=== PATIENT | female | born 1970 | race Caucasian/White ===

== ENCOUNTER 2024-08-15 10:34 | Outpatient (AMB) | payer BC, SELFPAY ==
--- NOTE | 2024-08-15 10:53 | A.OFFPC_ITS ---
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 Anxiety/depression: On lexapro. Hypothyroid: Stable on levothyroxine 100mcg daily [facility]-Dr Ricardo BECKFORD CONSTITUTIONAL: Denies weight loss, fever and chills. HEENT: Denies changes in vision and hearing. RESPIRATORY: Denies SOB and cough. CV: Denies palpitations and CP GI: Denies abdominal pain, nausea, vomiting and diarrhea. : Denies dysuria and urinary frequency. MSK: Denies new myalgia and joint pain. SKIN: Denies rash and pruritus. NEUROLOGICAL: Denies headache PSYCHIATRIC: Denies recent changes in mood. PHYSICAL EXAM: GENERAL: Alert and oriented x 3. NAD EYES: EOMI. Anicteric. HENT: Moist mucous membranes. No scleral icterus. No cervical lymphadenopathy. LUNGS: Clear to auscultation bilaterally. CARDIOVASCULAR: Regular rate and rhythm. No murmur. No JVD. ABDOMEN: Soft, non-tender +bs EXTREMITIES: No edema. Non-tender. SKIN: No rashes or lesions. Warm. NEUROLOGIC: No focal neurological deficits. CN II-XII grossly intact PSYCHIATRIC: Cooperative. Appropriate mood and affect [facility] Social History Housing: Condominium Patient Tobacco Use Status: Former Tobacco user Years Smoked: colleges years e-Cigarette/Vaping Use: Never Used Second Hand Smoke Exposure: No service: No Current occupational status: employed Current occupation: Teacher Current occupational exposures/hazards: No Cognitive needs: No Hearing needs: No Vision needs: No Questionnaire PHQ-9 Over the last 2 weeks, how often have you been bothered by any of the following problems? 1. Little interest or pleasure in doing things: several days 2. Feeling down, depressed, or hopeless: not at all 3. Trouble falling or staying asleep, or sleeping too much: not at all 4. Feeling tired or having little energy: several days 5. Poor appetite or overeating: not at all 6. Feeling bad about yourself - or that you are a failure or have let yourself or your family down: not at all 7. Trouble concentrating on things, such as reading the newspaper or watching television: not at all 8. Moving or speaking so slowly that other people could have noticed. Or the opposite - being so fidgety or restless that you have been moving around a lot more than usual: not at all 9. Thoughts that you would be better off or of hurting yourself in some way: not at all Total score: 2 Depression Screening Interpretation: Negative Depression Screening Done: Yes 90027 - PHQ-9 Billing: Yes Source: Developed by Drs. Joce Michelle, Mally Mckeon, Rustam Caballero and colleagues, with an educational nayeli from [employer]. Thrive Questionnaire Date Thrive assessed: 08/08/24 I am a: Patient What is your living situation today?: I have a steady place to live Within the past 12 months, did the food you bought not last and you didn't have the money to get more?: Never true Within the past 12 months, did you worry whether your food would run out before you got money to buy more?: Never true Do you have trouble paying for medicines?: No Do you have trouble getting transportation to medical appointments?: No Do you have trouble paying your heating and electricity bill?: No Do you have trouble taking care of your child, family member or friend?: No Do you have trouble with day-to-day activities such as bathing, preparing meals, shopping, managing finances, etc.?: No Are you currently unemployed and looking for a job?: No Are you interested in more education?: No Please select the resources that you would like help with: None Currently or been in a relationship where the following occur: No concerns reported THRIVE Score: 0 AUDIT C Alcohol Use Questionnaire (AUDIT-C) 1. How often do you have a drink containing alcohol?: 2-3 times a week 2. How many drinks containing alcohol do you have on a typical day when you are drinking?: 3 or 4 3. How often do you have six or more drinks on one occasion?: Never Total Score: 4 ADONAY-7 AMB Questionnaire ADONAY-7 Feeling nervous, anxious, or on edge: 1 = Several days Not being able to stop or control worryin = Not at all Worrying too much about different things: 1 = Several days Trouble relaxin = Not at all Being so restless that it is hard to sit still: 0 = Not at all Becoming easily annoyed or irritable: 0 = Not at all Feeling afraid as if something awful might happen: 1 = Several days Total ADONAY-7 score (0-4 normal; 5-9 mild; 10-14 moderate; 15-21 severe): 3 Source: Developed by Drs. Joce Michelle, Mally Mckeon, Rustam Caballero and colleagues, with an educational nayeli from [employer]. Physical exam (Primary Care) Vital Signs: Last Vital Signs Pulse 78 08/15/24 10:55 Resp 14 08/15/24 10:55 BP 128/88 08/15/24 10:55 Pulse Ox 97 08/15/24 10:55 Oxygen Delivery Method Room Air 08/15/24 10:55 BMI result Body Mass Index 28.5 Tobacco/Smoking Status: Tobacco use Status Tobacco use date assessed 08/15/24 08/15/24 10:57 Patient Tobacco Use Status Former Tobacco user 08/15/24 10:57 e-Cigarette/Vaping Use Never Used 08/15/24 10:57 PHQ-9: PHQ-9 Score PHQ-9: Total score 2 08/29/24 01:19 Depression Screening Interpretation: Negative Thrive Assessment: Date of Thrive Assessment Date Thrive assessed 08/08/24 08/15/24 10:57 Currently or been in a relationship where the following occur: No concerns reported Coding Level of Care Code Est Pt Level 4 (63510) Diagnoses Encounter to establish care Z76.89 Hypothyroid E03.9 Additional Codes PHQ-9 - 86251 - PHQ-9 Billing: Yes ([id number]) Assessment & Plan Assessment & Plan (1) Encounter to establish care: Code(s): Z76.89 - Persons encountering health services in other specified circumstances Category: Medical Plan: 54 year old female presenting to establish care. Past medical, surgical, social history reviewed (2) Hypothyroid: Code(s): E03.9 - Hypothyroidism, unspecified Category: Medical Plan: Clinically and biochemically euthyroid Orders: Orders Complete Blood Count Auto Diff 08/15/24 Z13.0 - Encounter for screening for diseases of the blood and blood-forming organs and certain disorders involving the immune mechanism, Z13.228 - Encounter for screening for other metabolic disorders, E03.9 - Hypothyroidism, unspecified Comprehensive Met. Panel 08/15/24 Z13.0 - Encounter for screening for diseases of the blood and blood-forming organs and certain disorders involving the immune mechanism, Z13.228 - Encounter for screening for other metabolic disorders, E03.9 - Hypothyroidism, unspecified MM screening mammo BI 08/15/24 Z12.31 - Encounter for screening mammogram for malignant neoplasm of breast Lipid Panel 08/15/24 Z13.0 - Encounter for screening for diseases of the blood and blood-forming organs and certain disorders involving the immune mechanism, Z13.228 - Encounter for screening for other metabolic disorders, E03.9 - Hypothyroidism, unspecified TSH reflex Free T4 08/15/24 Z13.0 - Encounter for screening for diseases of the blood and blood-forming organs and certain disorders involving the immune mechanism, Z13.228 - Encounter for screening for other metabolic disorders, E03.9 - Hypothyroidism, unspecified Referrals Endocrinology Referral E04.1 - Nontoxic single thyroid nodule, E03.9 - Hypothyroidism, unspecified Open Access Screening Colonoscopy Referral Z12.11 - Encounter for screening for malignant neoplasm of colon, Z12.12 - Encounter for screening for malignant neoplasm of rectum [employer] Referral Z12.4 - Encounter for screening for malignant neoplasm of cervix
[2024-08-15 10:55] VITALS: BP 128/88; PULSE 78; RESP 14; O2SAT 97; BMI 28.5
== END 2024-08-15 11:24 | disposition home or self-care (01) ==
PROVIDERS: PCP Internal Medicine; Visit Provider Internal Medicine
DX: Z76.89 Persons encountering health services in other specified circumstances (principal); E03.9 Hypothyroidism, unspecified

== ENCOUNTER → 2024-08-15 10:34 | Outpatient (BNVA) | payer BC, SELFPAY | PROVIDERS: PCP Internal Medicine; Visit Provider Internal Medicine | DX: Z76.89 Persons encountering health services in other specified circumstances (principal); E03.9 Hypothyroidism, unspecified; F41.9 Anxiety disorder, unspecified; F32.A Depression, unspecified; Z79.899 Other long term (current) drug therapy | CPT/HCPCS: 96127 ==

== ENCOUNTER 2024-08-15 11:32 | Outpatient (REF) | payer BC, SELFPAY ==
[2024-08-15 14:23] LABS: MANUAL DIFF FLAG NO
[2024-08-15 14:28] LABS: Basophils Absolute Auto 0.1 X10*3/uL (0.0-0.2); Basophils Percent Auto 1.6 % (0-2); Hematocrit 39.6 % (37.0-47.0); Hemoglobin 14.3 g/dl (12.0-16.0); Lymphocytes Absolute Auto 0.8 X10*3/uL (1.2-4.9); Lymphocytes Percent Auto 25.4 % (20-40); Mean Corpuscular HGB Conc 36.1 g/dl (31.0-35.0); Mean Corpuscular Hemoglobin 36.2 pg (27.0-33.0); Mean Corpuscular Volume 100.3 fL (80.0-98.0); Mean Platelet Volume 9.6 fL (9.4-12.3); Monocytes Absolute Auto 0.4 X10*3/uL (0.1-1.2); Monocytes Percent Auto 11.1 % (2-11); Neutrophils Absolute Auto 1.9 x10*3/uL (2.0-8.3); Neutrophils Percent Auto 60.9 % (45-73); Platelet Count 304 X10*3/uL (160-400); Red Blood Count 3.95 X10*6/uL (4.20-5.50); Red Cell Distribution Width 12.7 % (11.0-16.0); White Blood Count 3.2 X10*3/uL (4.8-10.8)
[2024-08-15 14:47] LABS: Alanine Aminotransferase 62 U/L (0-31); Albumin Level 4.3 g/dL (3.5-5.0); Alkaline Phosphatase 80 U/L (39-117); Anion Gap 15 (12-20); Aspartate Amino Transferase 45 U/L (5-31); Bilirubin Total 0.6 mg/dL (0.0-1.0); Blood Urea Nitrogen 13 mg/dL (9-16); Calcium 9.7 mg/dL (8.4-10.2); Carbon Dioxide 24 mmol/L (22-29); Chloride 102 mmol/L (96-108); Cholesterol 239 mg/dL (<200); Estimated Glomerular Filt Rate > 60; Glucose Random 103 mg/dL (60-115); HDL Cholesterol 111 mg/dL (>40); LDL Cholesterol Calculated 111 mg/dL (<100); Potassium 4.1 mmol/L (3.3-5.1); Sodium 137 mmol/L (135-145); Total Protein 7.3 g/dL (6.5-8.0); Triglycerides 85 mg/dL (<150)
[2024-08-15 15:10] LABS: TSH reflex Free T4 7.79 uIU/mL (0.32-4.0)
[2024-08-15 16:20] LABS: Free T4 (Free Thyroxine) 1.11 ng/dL (0.71-1.85)
== END 2024-08-15 11:33 | disposition home or self-care (01) ==
LOC: HO.WFDLDS 11:32
PROVIDERS: Visit Provider Internal Medicine
DX: Z13.0 Encounter for screening for diseases of the blood and blood-forming organs and certain disorders involving the immune mechanism (principal); Z13.228 Encounter for screening for other metabolic disorders; E03.9 Hypothyroidism, unspecified
CPT/HCPCS: 36415; 80053; 80061; 84439; 84443; 85025

== ENCOUNTER 2024-08-29 08:21 | Outpatient (AMB) | payer BC, SELFPAY ==
[2024-08-29 08:34] VITALS: BP 136/88; PULSE 98; O2SAT 99; BMI 28.4
--- NOTE | 2024-08-29 08:34 | A.OFFPC_ITS ---
Vital Signs 08/29/24 08:34 Height 5 ft 3 in Weight 160 lb 6 oz BMI 28.4 BP 136/88 Blood Pressure Location Rt brachial Position Sitting Pulse 98 Pulse Source Pulse Oximeter Pulse Oximetry (%) 99 Oxygen Delivery Method Room Air Intake Visit Reasons: cpe Allergies No Known Allergies Allergy (Verified 08/29/24 08:38) Tobacco use date assessed: 08/29/24 Dental Screening Dental Screen Date: 08/29/24 Did you have a dental visit in the last 12 months?: Yes Did you have a dental problem in the last 6 months where you did not have access to dental care?: No Was dental information given to patient?: Patient has dentist HPI HPI Comments History of Present Illness Details 54 year old female with a past medical h istory of hypothyroid, anxiety, depression presenting for annual exam Anxiety/depression: On lexapro. Hypothyroid: On levothyroxine 100mcg daily. Compliant. TSH elevated-increased levothyroxine from 100 to 100mcg today. Referral to endocrine pending Recently moved to the area-was following at [facility] ctr-Dr Ricardo Bennett [facility] CONSTITUTIONAL: Denies weight loss, fever and chills. HEENT: Denies changes in vision and hearing. RESPIRATORY: Denies SOB and cough. CV: Denies palpitations and CP GI: Denies abdominal pain, nausea, vomiting and diarrhea. : Denies dysuria and urinary frequency. MSK: Denies new myalgia and joint pain. SKIN: Denies rash and pruritus. NEUROLOGICAL: Denies headache PSYCHIATRIC: Denies recent changes in mood. PHYSICAL EXAM: GENERAL: Alert and oriented x 3. NAD EYES: EOMI. Anicteric. HENT: Moist mucous membranes. No scleral icterus. No cervical lymphadenopathy. LUNGS: Clear to auscultation bilaterally. CARDIOVASCULAR: Regular rate and rhythm. No murmur. No JVD. ABDOMEN: Soft, non-tender +bs EXTREMITIES: No edema. Non-tender. SKIN: No rashes or lesions. Warm. NEUROLOGIC: No focal neurological deficits. CN II-XII grossly intact PSYCHIATRIC: Cooperative. Appropriate mood and affect [facility] Patient Tobacco Use Status: Former Tobacco user Years Smoked: colleges years e-Cigarette/Vaping Use: Never Used Second Hand Smoke Exposure: No service: No Current occupational status: employed Current occupation: Teacher Current occupational exposures/hazards: No Cognitive needs: No Hearing needs: No Vision needs: No Questionnaire PHQ-9 Over the last 2 weeks, how often have you been bothered by any of the following problems? 1. Little interest or pleasure in doing things: several days 2. Feeling down, depressed, or hopeless: not at all 3. Trouble falling or staying asleep, or sleeping too much: not at all 4. Feeling tired or having little energy: several days 5. Poor appetite or overeating: not at all 6. Feeling bad about yourself - or that you are a failure or have let yourself or your family down: not at all 7. Trouble concentrating on things, such as reading the newspaper or watching television: not at all 8. Moving or speaking so slowly that other people could have noticed. Or the opposite - being so fidgety or restless that you have been moving around a lot more than usual: not at all 9. Thoughts that you would be better off or of hurting yourself in some way: not at all Total score: 2 Depression Screening Interpretation: Negative Depression Screening Done: Yes 05373 - PHQ-9 Billing: Yes Source: Developed by Drs. Joce Michelle, Mally Mckeon, Rustam Caballero and colleagues, with an educational nayeli from [employer]. Thrive Questionnaire Date Thrive assessed: 08/08/24 I am a: Patient What is your living situation today?: I have a steady place to live Within the past 12 months, did the food you bought not last and you didn't have the money to get more?: Never true Within the past 12 months, did you worry whether your food would run out before you got money to buy more?: Never true Do you have trouble paying for medicines?: No Do you have trouble getting transportation to medical appointments?: No Do you have trouble paying your heating and electricity bill?: No Do you have trouble taking care of your child, family member or friend?: No Do you have trouble with day-to-day activities such as bathing, preparing meals, shopping, managing finances, etc.?: No Are you currently unemployed and looking for a job?: No Are you interested in more education?: No Please select the resources that you would like help with: None Currently or been in a relationship where the following occur: No concerns reported THRIVE Score: 0 AUDIT C Alcohol Use Questionnaire (AUDIT-C) 1. How often do you have a drink containing alcohol?: 2-3 times a week 2. How many drinks containing alcohol do you have on a typical day when you are drinking?: 3 or 4 3. How often do you have six or more drinks on one occasion?: Never Total Score: 4 ADONAY-7 AMB Questionnaire ADONAY-7 Date ADONAY - 7 assessed: 08/29/24 Feeling nervous, anxious, or on edge: 1 = Several days Not being able to stop or control worryin = Not at all Worrying too much about different things: 1 = Several days Trouble relaxin = Not at all Being so restless that it is hard to sit still: 0 = Not at all Becoming easily annoyed or irritable: 0 = Not at all Feeling afraid as if something awful might happen: 1 = Several days Total ADONAY-7 score (0-4 normal; 5-9 mild; 10-14 moderate; 15-21 severe): 3 Source: Developed by Drs. Joce Michelle, Mally Mckeon, Rustam Caballero and colleagues, with an educational nayeli from [employer]. ADONAY-7 Assessment Billing ADONAY-7 Assessment Tool: ADONAY-7 Assessment 59982 Physical exam (Primary Care) Vital Signs: Last Vital Signs Pulse 98 08/29/24 08:34 BP 136/88 08/29/24 08:34 Pulse Ox 99 08/29/24 08:34 Oxygen Delivery Method Room Air 08/29/24 08:34 BMI result Body Mass Index 28.4 Tobacco/Smoking Status: Tobacco use Status Tobacco use date assessed 08/29/24 08/29/24 08:39 Patient Tobacco Use Status Former Tobacco user 08/29/24 08:39 e-Cigarette/Vaping Use Never Used 08/29/24 08:39 PHQ-9: PHQ-9 Score PHQ-9: Total score 2 08/29/24 08:39 Depression Screening Interpretation: Negative Thrive Assessment: Date of Thrive Assessment Date Thrive assessed 08/08/24 08/29/24 08:39 Currently or been in a relationship where the following occur: No concerns reported Coding Level of Care Code Est Pt Prev Care 40-64y(33369) Diagnoses Physical exam Z00.00 Additional Codes ADONAY-7 Assessment Billing - ADONAY-7 Assessment Tool: ADONAY-7 Assessment 48261 ([id number]) PHQ-9 - 29371 - PHQ-9 Billing: Yes ([id number]) Assessment & Plan Assessment & Plan (1) Physical exam: Code(s): Z00.00 - Encounter for general adult medical examination without abnormal findings Category: Medical Plan: Preventive measures for age discussed Mammo scheduled Awaiting colonoscopy date Labs UTD TSH elevated. Levothyroxine increased to 112mcg Orders: Orders TSH reflex Free T4 2 Months E03.9 - Hypothyroidism, unspecified Medications: New levothyroxine 112 mcg PO DAILY 90 tabs 3RF
== END 2024-08-29 09:05 | disposition home or self-care (01) ==
PROVIDERS: PCP Internal Medicine; Visit Provider Internal Medicine
DX: Z00.00 Encounter for general adult medical examination without abnormal findings (principal)

== ENCOUNTER → 2024-08-29 08:21 | Outpatient (BNVA) | payer BC, SELFPAY | PROVIDERS: PCP Internal Medicine; Visit Provider Internal Medicine | DX: Z00.00 Encounter for general adult medical examination without abnormal findings (principal); E03.9 Hypothyroidism, unspecified; F41.9 Anxiety disorder, unspecified; F32.A Depression, unspecified; Z79.899 Other long term (current) drug therapy | CPT/HCPCS: 96127 ==

== ENCOUNTER 2024-09-12 10:46 | Outpatient (AMB) | payer BC, SELFPAY ==
[2024-09-12 10:48] VITALS: BP 150/100; PULSE 81; BMI 29.1
--- NOTE | 2024-09-12 10:48 | A.OFFVIS_ITS ---
Vital Signs 09/12/24 10:48 09/12/24 11:13 Height 5 ft 3 in Weight 164 lb 3.91 oz BMI 29.1 BP 150/100 H 142/85 H Blood Pressure Location Lt brachial Lt brachial Position Sitting Pulse 81 Pulse Source Pulse Oximeter Intake Visit Reasons: Hypothyroidism Intake Note: New patient present today for Hypothyroidism. Nub Card Tender Required: No Accompanied by: Self / Same As Patient Allergies No Known Allergies Allergy (Verified 09/12/24 10:51) Medication List - Last Reconciled 09/12/24 by Amina Choi MD escitalopram oxalate 20 mg PO DAILY levothyroxine 112 mcg PO DAILY semaglutide 0.25 mg subcut QWEEK HPI Comments Details: 54-year-old female here today for initial evaluation of hypothyroidism. Also reports history of left sided thyroid nodule. Diagnosed with hypothyroidism, diagnosed in her 40s. Labs from 08/15/2024: Showed elevated TSH of 7.79, free T4 of 1.11. 08/29/2024: PCP increased levothyroxine from 100 mcg daily to 112 mcg daily Takes levothyroxine 112 mcg daily at 7 30 AM, fasts till midday. Good adherence. Used to see Dr. Ricardo Bennett in [place] for thyroid nodule ( [facility]) , moved to [place] 6 months ago For left thyroid nodule< thinks diagnosed also in her 40s, had FNA biopsy 12 years back [facility] was benign, has been followed with repeat US , most recently 2- 3 years ago, no recent thyroid Us done. Patient currently denies heat or cold intolerance, diarrhea or constipation, hair loss, palpitation, anxiety, weight changes, mood changes, low energy, changes in appearance of eyes or vision changes, tremors, increased diaphoresis or dry skin. ? Patient denies any difficulty swallowing, pain on swallowing or voice changes or difficulty breathing. Patient denies any history of childhood neck radiation. Denies having ever used lithium, amiodarone or biotin supplements. Patient denies any family history of thyroid cancer or thyroid disease. Review of systems Constitutional: no fevers, chills or weight loss HEENT: no changes in vision Cardiac: No chest pain, discomfort or palpitations. Pulmonary: No SOB GI:No abdominal pain, no nausea or vomiting, no anorexia, no blood in stool : no burning micturition, dysuria or increase in urinary frequency Neurologic: No dizziness, no weakness in extremities Physical exam General: sitting comfortably in no acute distress HEENT: normocephalic/atraumatic, EOM intact, moist oral mucosa Neck: supple, symmetrical, no thyromegaly , no dorsocervical or supraclavicular fat pads Cardiac: normal heart sounds Pulm: normal breath sounds B/L, no added breath sounds Abd: not distended, no tenderness Extremities: no edema, no signs of myxedema Neuro: AAO x3, Speech: normal, no facial droop, moving all 4 extremities Laboratory Tests 08/15/24 11:34 TSH 7.79 H Free T4 1.11 PFSH [facility] Patient Tobacco Use Status: Former Tobacco user Years Smoked: colleges years e-Cigarette/Vaping Use: Never Used Second Hand Smoke Exposure: No service: No Current occupational status: employed Current occupation: Teacher Current occupational exposures/hazards: No Cognitive needs: No Hearing needs: No Vision needs: No Physical Exam Vital Signs: Last Vital Signs Pulse 81 09/12/24 10:48 BP 150/100 H 09/12/24 10:48 BMI result Body Mass Index 29.1 Assessment & Plan Assessment & Plan (1) Hypothyroid: Code(s): E03.9 - Hypothyroidism, unspecified Category: Medical Qualifiers: 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 Plan: -continue levothyroxine 112 mcg daily -do blood work in 4 weeks which would be around 2 weeks from dose change (2) Thyroid nodule: Code(s): E04.1 - Nontoxic single thyroid nodule Category: Medical Plan: 54-year-old female with no family history of thyroid cancer, with no personal history of head or neck radiation, who has a history of left-sided thyroid nodule per patient diagnosed in her 40s. She has had a biopsy of the nodule about 12 years ago, which was benign per patient. I do not have these records. She has not had any recent thyroid ultrasound for the past 2-3 years. No compressive symptoms. We will try to obtain her records from [place]. Regardless we will also obtain a thyroid ultrasound. On my exam today I could not palpate any thyroid nodules. Plan: -ordered thyroid ultrasound -obtain records from prior [facility] clinical programmer in [place] -follow up in 8 weeks to discuss ultrasound results Plan See above Orders: Orders Free T4 (Free Thyroxine) 4 Weeks E03.9 - Hypothyroidism, unspecified US thyroid Today E04.1 - Nontoxic single thyroid nodule Thyroid Stimulating Hormone 4 Weeks E03.9 - Hypothyroidism, unspecified Patient Instructions: Continue levothyroxine 112 mcg daily Do blood work in 4 weeks , we will reach out with results Do thyroid ultrasound, someone will call you to schedule this Follow up in 8 weeks Coding Level of Care Code New Pt Level 4 (17177) Diagnoses 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
[2024-09-12 11:13] VITALS: BP 142/85
== END 2024-09-12 11:12 | disposition home or self-care (01) ==
PROVIDERS: PCP Internal Medicine; Visit Provider Student in an Organized Health Care Education/Training Program
DX: E06.3 Autoimmune thyroiditis (principal); E04.1 Nontoxic single thyroid nodule
CPT/HCPCS: 99204

== ENCOUNTER 2024-09-26 15:27 | Outpatient (REF) | payer BC, SELFPAY ==
--- NOTE | ~2024-09-26 | US_ITS ---
EXAMINATION: US THYROID HISTORY: E04.1 - Nontoxic single thyroid nodule TECHNIQUE: Real-time grayscale ultrasound imaging was performed and images were reviewed. COMPARISON: There are no prior studies for comparison. FINDINGS: SIZE: The right thyroid lobe measures 3.2 x 0.8 x 1.0 cm. The left thyroid lobe measures 3.4 x 0.9 x 1.4 cm. The isthmus measures 1 mm. FLOW: Flow to the gland is normal. ECHOGENICITY: The echotexture of the gland is heterogeneous. NODULES: Multiple nodules are noted as described below: Nodule #: 1 Location: Mid to lower pole right thyroid lobe measuring 1.1 x 0.7 x 0.7 cm Shape: Ovoid, wider than tall Margins: Well-circumscribed Echotexture: Isoechoic Morphology: Predominantly solid Calcifications: None TIRADS: TR3: Mildly suspicious. Nodule #: 2 Location: Left interpolar region measuring 9 x 9 x 8 mm Shape: Round Margins: Well-circumscribed Echotexture: Undetermined Morphology: Cystic and solid Calcifications: None TIRADS: TR2: Not suspicious Nodule #: 3 Location: Left lower pole measuring 1.1 x 1.2 x 0.8 cm Shape: Ovoid, wider than tall Margins: Well-circumscribed Echotexture: Undetermined Morphology: Cystic and solid Calcifications: Macrocalcifications present TIRADS: TR3: Mildly suspicious. US/US thyroid IMPRESSION: Nodules are seen in both thyroid lobes as described, which are mildly suspicious. According to ACR TI-RADS, follow-up is recommended. Electronically signed by: Joce Marshall MD 10/03/2024 12:36 PM [facility] [place]
--- OUTSIDE RECORDS SUMMARY | 2024-09-26 17:18 | XMS_ITS ---
Author Organization Unknown Patient Care team information Name Category Status Period Participants - - Proposed period not known - - - Proposed period not known - - - Proposed period not known - - - Proposed period not known - - - Proposed period not known -
== END 2024-09-26 15:28 | disposition home or self-care (01) ==
LOC: HO.US 15:27
PROVIDERS: PCP Internal Medicine; Visit Provider Student in an Organized Health Care Education/Training Program
DX: E04.1 Nontoxic single thyroid nodule (principal)
CPT/HCPCS: 76536

== ENCOUNTER → 2024-09-26 15:29 | Outpatient (BNV) | payer BC, SELFPAY | PROVIDERS: PCP Internal Medicine; Visit Provider Radiology Diagnostic Radiology | DX: E04.1 Nontoxic single thyroid nodule (principal) | CPT/HCPCS: 76536 ==

== ENCOUNTER 2024-09-30 16:15 | Outpatient (REF) | payer BC, SELFPAY | END 2024-09-30 16:16 | disposition home or self-care (01) | LOC: HO.MAMMO 16:15 | PROVIDERS: PCP Internal Medicine; Visit Provider Internal Medicine | DX: Z12.31 Encounter for screening mammogram for malignant neoplasm of breast (principal) | CPT/HCPCS: 77063; 77067 ==

== ENCOUNTER → 2024-09-30 16:30 | Outpatient (BNV) | payer BC, SELFPAY | PROVIDERS: PCP Internal Medicine; Visit Provider Internal Medicine | DX: Z12.31 Encounter for screening mammogram for malignant neoplasm of breast (principal) | CPT/HCPCS: 77063; 77067 ==

== ENCOUNTER 2024-11-14 08:11 | Outpatient (REF) | payer BC, SELFPAY ==
[2024-11-14 12:12] LABS: Free T4 (Free Thyroxine) 1.52 ng/dL (0.71-1.85); Thyroid Stimulating Hormone 0.09 uIU/mL (0.32-4.0)
== END 2024-11-14 08:12 | disposition home or self-care (01) ==
LOC: HO.WFDLDS 08:11
PROVIDERS: Visit Provider Student in an Organized Health Care Education/Training Program
DX: E03.9 Hypothyroidism, unspecified (principal)
CPT/HCPCS: 36415; 84439; 84443

== ENCOUNTER 2024-11-17 13:52 | Outpatient (AMB) | payer BC, SELFPAY ==
[2024-11-17 13:56] VITALS: BP 132/78; PULSE 72; O2SAT 96; BMI 27.3
--- NOTE | 2024-11-17 13:56 | A.OFFVIS_ITS ---
Vital Signs 11/17/24 13:56 Height 5 ft 3 in Weight 154 lb 1.65 oz BMI 27.3 BP 132/78 Blood Pressure Location Lt brachial Position Sitting Pulse 72 Pulse Source Pulse Oximeter Pulse Oximetry (%) 96 Oxygen Delivery Method Room Air Intake Visit Reasons: Hypothyroidism Intake Note: Patient present today for Hypothyroidism office visit. Nurse Transitional Required: No Accompanied by: Self / Same As Patient Allergies No Known Allergies Allergy (Verified 11/17/24 14:01) Medication List - Last Reconciled 11/17/24 by Amina Choi MD escitalopram oxalate 20 mg PO DAILY levothyroxine 112 mcg orally; 1 tablet Thursday to Thursday and half a tablet on Sundays semaglutide 0.25 mg subcut QWEEK HPI Comments Details: 54-year-old female here today for follow up of hypothyroidism. and left sided thyroid nodules. Diagnosed with hypothyroidism, diagnosed in her 40s. Labs from 08/15/2024: Showed elevated TSH of 7.79, free T4 of 1.11. 08/29/2024: PCP increased levothyroxine from 100 mcg daily to 112 mcg daily Takes levothyroxine 112 mcg daily at 7 30 AM, fasts till midday. Good adherence. Used to see Dr. Ricardo Bennett in [place] for thyroid nodule ( [facility]) , moved to [place] 6 months ago For left thyroid nodule< thinks diagnosed also in her 40s, had FNA biopsy 12 years back [facility] was benign, has been followed with repeat US , most recently 2- 3 years ago, no recent thyroid Us done. Patient currently denies heat or cold intolerance, diarrhea or constipation, hair loss, palpitation, anxiety, weight changes, mood changes, low energy, changes in appearance of eyes or vision changes, tremors, increased diaphoresis or dry skin. ? Patient denies any difficulty swallowing, pain on swallowing or voice changes or difficulty breathing. Patient denies any history of childhood neck radiation. Denies having ever used lithium, amiodarone or biotin supplements. Patient denies any family history of thyroid cancer or thyroid disease. Interval history 09/26/2024: Ultrasound of the thyroid showed a mid to lower right pole nodule 1.1 cm, TR 3 category, a left subcentimeter interpolar nodule which is cystic, and a left lower pole 1.2 cm nodule which is TR 3 category. 11/14/2024: TSH 0.09 , free T4 1.5 No symptoms of hypo or hyperthyroidism. Physical exam General: sitting comfortably in no acute distress HEENT: normocephalic/atraumatic Neck: supple, symmetrical, no thyromegaly Cardiac: normal heart sounds Pulm: normal breath sounds B/L, no added breath sounds Abd: not distended, no tenderness Laboratory Tests 08/15/24 11:34 TSH 7.79 H Free T4 1.11 Laboratory Tests 08/15/24 11/14/24 11:34 08:12 TSH 7.79 H 0.09 L Free T4 1.11 1.52 EXAMINATION: US THYROID 09/26/24 HISTORY: E04.1 - Nontoxic single thyroid nodule TECHNIQUE: Real-time grayscale ultrasound imaging was performed and images were reviewed. COMPARISON: There are no prior studies for comparison. FINDINGS: SIZE: The right thyroid lobe measures 3.2 x 0.8 x 1.0 cm. The left thyroid lobe measures 3.4 x 0.9 x 1.4 cm. The isthmus measures 1 mm. FLOW: Flow to the gland is normal. ECHOGENICITY: The echotexture of the gland is heterogeneous. NODULES: Multiple nodules are noted as described below: Nodule #: 1 Location: Mid to lower pole right thyroid lobe measuring 1.1 x 0.7 x 0.7 cm Shape: Ovoid, wider than tall Margins: Well-circumscribed Echotexture: Isoechoic Morphology: Predominantly solid Calcifications: None TIRADS: TR3: Mildly suspicious. Nodule #: 2 Location: Left interpolar region measuring 9 x 9 x 8 mm Shape: Round Margins: Well-circumscribed Echotexture: Undetermined Morphology: Cystic and solid Calcifications: None TIRADS: TR2: Not suspicious Nodule #: 3 Location: Left lower pole measuring 1.1 x 1.2 x 0.8 cm Shape: Ovoid, wider than tall Margins: Well-circumscribed Echotexture: Undetermined Morphology: Cystic and solid Calcifications: Macrocalcifications present TIRADS: TR3: Mildly suspicious. US/US thyroid IMPRESSION: Nodules are seen in both thyroid lobes as described, which are mildly suspicious. According to ACR TI-RADS, follow-up is recommended. [facility] Social History Housing: Condominium Patient Tobacco Use Status: Former Tobacco user Years Smoked: colleges years e-Cigarette/Vaping Use: Never Used Second Hand Smoke Exposure: No service: No Current occupational status: employed Current occupation: Teacher Current occupational exposures/hazards: No Cognitive needs: No Hearing needs: No Vision needs: No Physical Exam Vital Signs: Last Vital Signs Pulse 72 11/17/24 13:56 BP 132/78 11/17/24 13:56 Pulse Ox 96 11/17/24 13:56 Oxygen Delivery Method Room Air 11/17/24 13:56 BMI result Body Mass Index 27.3 Assessment & Plan Assessment & Plan (1) Hypothyroid: Code(s): E03.9 - Hypothyroidism, unspecified Category: Medical Qualifiers: 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 11/14/2024: TSH 0.09 , free T4 1.5 No symptoms of hypo or hyperthyroidism. Plan: -reduce levothyroxine to 112 mcg Thursday to Thursday and then half a pill on Sundays -repeat blood work in 6 weeks with TSH, free T4, we will reach out with the results and communicate further instructions. -follow up in 6 months (2) Thyroid nodule: Code(s): E04.1 - Nontoxic single thyroid nodule Category: Medical Plan: 54-year-old female with no family history of thyroid cancer, with no personal history of head or neck radiation, who has a history of left-sided thyroid nodule per patient diagnosed in her 40s. She has had a biopsy of the nodule about 12 years ago, which was benign per patient. I was able to obtain her records from her prior supervisor drying but did not include her last ultrasound. No compressive symptoms. 09/26/2024: Ultrasound of the thyroid showed a mid to lower right pole nodule 1.1 cm, TR 3 category, a left subcentimeter interpolar nodule which is cystic, and a left lower pole 1.2 cm nodule which is TR 3 category. At this time none of the nodules meet criteria for FNA. We will continue to monitor these. Plan: -repeat thyroid ultrasound ordered for October 2025 Plan See above Orders: Orders Thyroid Stimulating Hormone 6 Weeks E04.1 - Nontoxic single thyroid nodule, E06.3 - Autoimmune thyroiditis Free T4 (Free Thyroxine) 6 Weeks E04.1 - Nontoxic single thyroid nodule, E06.3 - Autoimmune thyroiditis US thyroid 1 Year E04.1 - Nontoxic single thyroid nodule Medications: Changed From levothyroxine 112 mcg PO DAILY 90 tabs 3RF To levothyroxine 112 mcg orally; 1 tablet Thursday to Thursday and half a tablet on Sundays 90 tabs 3RF Patient Instructions: Decrease levothyroxine to 112 mcg 1 tablet Thursday to Thu and half tablet on sundays Do blood work in 6 weeks, we will communicate results and instructions Follow up in 6 month Next ultrasound would be due Oct 2025 Coding Level of Care Code Est Pt Level 4 (74109) Diagnoses 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
== END 2024-11-17 14:15 | disposition home or self-care (01) ==
PROVIDERS: PCP Internal Medicine; Visit Provider Student in an Organized Health Care Education/Training Program
DX: E06.3 Autoimmune thyroiditis (principal); E04.1 Nontoxic single thyroid nodule
CPT/HCPCS: 99214

== ENCOUNTER 2025-01-11 10:17 | Outpatient (REF) | payer BC, SELFPAY ==
[2025-01-11 12:45] LABS: Free T4 (Free Thyroxine) 1.32 ng/dL (0.71-1.85); Thyroid Stimulating Hormone 0.26 uIU/mL (0.32-4.0)
== END 2025-01-11 10:18 | disposition home or self-care (01) ==
LOC: HO.WFDLDS 10:17
PROVIDERS: Visit Provider Student in an Organized Health Care Education/Training Program
DX: E04.1 Nontoxic single thyroid nodule (principal); E06.3 Autoimmune thyroiditis
CPT/HCPCS: 36415; 84439; 84443

== ENCOUNTER 2025-04-03 13:33 | Outpatient (REF) | payer BC, SELFPAY ==
--- OUTSIDE RECORDS SUMMARY | 2025-04-03 14:43 | XMS_ITS | Data Portability ---
Author Organization [place] - [facility], [facility] Address [address] [place] [address] Care Team Providers Care Shuttle Final Inspector Name Role Phone PérezWHITE SAEID Primary Care Provider Assessment No assessment recorded. Plan of Treatment Reminders Order Date Submit Date Provider Last Modified By Organization Details Last Modified Time Details Appointments NEW PATIENT 20 2024 02:30P M Kavin Alicea MD Not available Not available Not available Lab None recorded . Referral physical therapis t referral - dx:Left greater tuberosi ty fracture 03/14/202023 024 [email or web address] Not available 04/13/2024 16:54:16 Procedures None recorded . Surgeries None recorded . Imaging XR, hip + pelvis, unilater al, 2 or 3 view - L hip 2v. rooom 113 2024 025 [facility], [address], [place], [address], 12/20/2024 16:37:18 XR, shoulder , 2 or more view - rm 112 2023 024 [email or web address] [facility], [address], [place], [address], 04/13/2024 16:54:16 Medication Orders oxycodon e 5 mg tablet 2023 024 [email or web address] [id number], [address], [place], [place], [id number], 12/20/2024 16:30:37 Patient TargetsNo targets recorded. Patient InstructionsNo instructions recorded. Reason for Referral Physical Therapist Referral for Closed fracture of greater tuberosity of proximal left humerus dx:Left greater tuberosity fracture 03/14/2024 Referring Physician: Jarret Ferguson, Orthopedic Surgery, Encounter Date: 04/11/2024 Results Created Date Observation Date Name Description Value Unit Range Abnormal Flag Note LastModifiedBy Organization Detail LastModifiedTime 04/11/20 24 04/11/2024 XR, shoul leobardo, 2 or more view [email or web address]:/ [email or web address] ?Encry pted=s hAaTro YD8dLq bEUv6g %2BXZw aYqtaq 0bqfl% 2Fg9IQ a4ajBk vP9nXo QUaueC m3YtLR FvZlgJ JJ8mAn HZtai3 2i7303 AC0KpY 3iGV6X eUC8mr 84%3D INTERFACE [facility] [address], [place], [address], 04/11/2024 14:26:18 04/11/20 24 04/11/2024 XR, shoul leobardo, 2 or more view [email or web address] ?Encry pted=s hAaTro YD8dLq bEUv6g %2BXZw aYqtaq 0bqfl% 2Fg9IQ a4ajBk vP9nXo QUaueC m3YtLR FvZlgJ JJ8mAn HZtai3 7f6063 AC0KpY 3iGV6X eUC8mr 84%3D INTERFACE [facility] [address], [place], [address], 04/11/2024 14:26:19 12/21/19 25 12/20/2024 XR, hip + pelvi s, unila teral , 2 or 3 view http:/ [email or web address] ?Encry pted=s hAaTro YD8dLq bEUv6g %2BXZw aYqtaq 0bqfl% 2Fg9IQ a4ajBk vP9nXo QUaueC m3YtLR FvZlgJ JJ8mAn HZtai3 6u4837 AC0KqY 32AWKS lKiQtr MwF INTERFACE [facility] [address], [place], [address], 12/20/2024 16:37:18 12/21/19 25 12/20/2024 XR, hip + pelvi s, unila teral , 2 or 3 view http:/ [email or web address] ?Encry pted=s hAaTro YD8dLq bEUv6g %2BXZw aYqtaq 0bqfl% 2Fg9IQ a4ajBk vP9nXo QUaueC m3YtLR FvZlgJ JJ8mAn HZtai3 3c1810 AC0KqY 32AWKS lKiQtr MwF INTERFACE [facility] [address] [address], [place], [address], 12/20/2024 16:37:21 Result Notes Documentation Provider Name and Address Organization Details Recorded Time Xr, Shoulder, 2 Or More View : [email or web address]? Encrypted=ctHgOziFD6wTogJ Uv6g%3CFCwqGsuui9kguh%2Fg 7HAv0veAsrU9cAsFPnmbMy2Dv JDYbEibPQT6uLaVBkif43t778 2AW2EjE7nEP4WbTZ9up06%3D Not Available [facility] 04/11/2024 14:2 6:18 Xr, Shoulder, 2 Or More View : [email or web address]? Encrypted=hjOvHtcRH5pQyjV Uv6g%9HNYybXzbhy6yqlt%2Fg 5ZIb9qrCvoG5bEoSEzvhEh6Hj RSZxDzzBCC9kSxXXrwo23l885 2HA7WoH8yNR2KxGL6vu38%3D Not Available [facility] 04/11/2024 14:2 6:20 Xr, Hip + Pelvis, Unilateral, 2 Or 3 View : [email or web address]? Encrypted=ljQgDoqJL8uSnwW Uv6g%8INJbuQsimo7nggk%2Fg 8BYq7frPliL6tDxMBocaMv7Fx ECXuQbqXJP1mClRElfd25h936 8QM4JjG04LPQMqAcFopGmN Not Available [facility] 12/20/2024 16:37: 19 Xr, Hip + Pelvis, Unilateral, 2 Or 3 View : [email or web address]? Encrypted=pvFvAhaKC0aZerZ Uv6g%2TVHqaKtoqi1vvma%2Fg 4TLz1jkHpaH6xRkHWnwfQa4Ql CLXmTewDXI8mMtXVxyu51k177 0NE3DjO76CUYAbWqRqrZgV Not Available [facility] 12/20/2024 16:37: 22 Problems Name Problem SNOMED Code Status Onset Date Resolution Date Notes Provider Name and Address Organization Details Recorded Time Pain of left shoulder joint 037475892632171 09 Active 2023 Jarret Ferguson PA-C [address], [place], [address], [facility] 13:56:43 Problem Notes None recorded. Procedures Surgical History Date Name Laterality Status Provider Name and Address Organization Details Recorded Time [facility] Ricardo Block [facility]-C [address], [place], [address], [facility] 03/21/2025 08:39:32 12/20/2024 [facility] Ric[facility] [address], [place], [address], [facility] 12/20/2024 17:13:06 Imaging Results None recorded. Procedure Notes None recorded. Medical Equipment None Reported. Allergies No known drug allergies Medications Name Sig Start Date Stop Date Status Note LastModified by Organization Details LastModified Time Synthroid 100 mcg tablet TAKE 1 TABLET BY MOUTH EVERY OTHER DAY active Not Available Not Available No t Available levothyroxine 112 mcg tablet TAKE 1 TABLET BY MOUTH DAILY active Not Available Not Available No t Available amoxicillin 875 mg-potassium clavulanate 125 mg tablet TAKE 1 TABLET BY MOUTH TWICE DAILY active Not Available Not Available No t Available oxycodone 5 mg tablet TAKE 1 TABLET BY MOUTH EVERY 4 HOURS NEEDED 12/20 completed Not Available Not Available Not Available escitalopram 20 mg tablet TAKE 1 TABLET BY MOUTH DAILY active Not Available Not Available No t Available Vitals Date Recorded Body height Body mass index (BMI) Body weight Provider Name and Address Organization Details Last Updated DateTime 12/20/2024 157.48 cm 27.4 kg/m2 53778.86 g Ricardo Block PA-C [address], [place], [address], [facility] 12/20/2024 16:30:04 Date Recorded Body height Body mass index (BMI) Body weight Provider Name and Address Organization Details Last Updated DateTime 03/15/2024 157.48 cm 27.4 kg/m2 14810.86 g SINDHU RICK [facility] 03/15/2024 13:43:39 Date Recorded Body height Provider Name an d Address Organization Details Last Updated DateTime 03/21/2025 157.48 cm ALEM MANUEL [facility] 03/21/2025 08:24:30 Date Recorded Body height Body mass index (BMI) Body weight Provider Name and Address Organization Details Last Updated DateTime 04/11/2024 157.48 cm 27.4 kg/m2 87936.86 g SAM SPIVEY [facility] 04/11/2024 14:19:15 Social History None recorded. Functional Status None recorded. Mental Status None recorded. Family History Nothing Reported. Medical History No medical history recorded. Gynecological HistoryNo gynecological history recorded. Obstetrics History GPAL:G 0 P 0 0 0 0 Past Encounters Encounter ID Performer Location Encounter Start Date Encounter Closed Date Diagnosis/Indication Diagnosis SNOMED-CT Code Diagnosis ICD10 Code Diagnosis Note [id number] Tamer Bahgat, PA-C [facility] [address] [place] [address] 03/15/2024 13:07:23 03/15/2024 14:01:07 Pain of left shoulder joint 5469832703 [id number] M25.245 [id number] Jarret Ferguson PA-C [facility] [address] [place] [address] 04/11/2024 14:04:19 05/14/2024 09:13:01 Pain of left shoulder joint 4702779286 3771545 M25.512 Closed fra cture of greater tuberosity of proximal left humerus 0771018581 6730445 S42.252D [id number] Ricardo Block PA-C [facility] [address] [place] [address] 12/20/2024 16:16:56 01/05/2025 10:26:47 Pain of hip region 35160409 M25.552 Osteoarthr itis of left hip joint 6819121182 49922 M16.12 [id number] Ricardo Block PA-C [facility] [address] [place] [address] 03/21/2025 08:21:07 03/21/2025 08:40:18 Osteoarthritis of left hip joint 1346643169 49568 M16.12 Health Concerns Section Related Observation LastModified by Organization Detai ls LastModified Time None Recorded Concern Status LastModified by Organization Details LastModified Time None Recorded Advance Directives Directive None Recorded Payers Insurance Date Sequence Insurance Name Policy Number Policy Owens Covered Member ID Owens Member ID Guarantor Name 04/08/2024 1 [place] [id number] Alem Powell [id number] Alem Powell 12/20/2024 1 [place] 2 [place]) [id number] Alem Powell [id number] Alem Powell 03/21/2025 1 [place] [facility] [id number] Alem Powell [id number] Alem Powell Notes Date Note Type Note Provider Name and Address Organization Details Recorded Time 03/15/2024 text/html I am seeing the patient today under the supervision of dr Doherty who was available but who did not see the patient. DX:Left greater tuberosity fracture 03/14/2024 HPI:53-year-old female here for orthopedic consultation. She injured her left shoulder on 03/14/2024 while rollerblading. She tripped and fell onto her left side. She was evaluated in urgent care this morning. X-rays confirmed a shoulder fracture. She is in a sling. No numbness, tingling. She has been icing. Past family, medical, social history and review of systems has been reviewed, updated and is located in the patient s chart. Examination: Left shoulder- A+O x3 non antalgic gait+ soft tissue swelling, And, ecchymosisShe is tender over the deltoid muscle and the proximal humeral shaftNo TTP distal clavicle, ACJ, acromionUnable to abduct or forward flex due to painUnable to externally rotate and internally rotate due to painUnable to assess rotator cuff strengthRadial, median and ulnar nerve motor and sensory function are intact Right shoulder reveals no soft tissue swelling, erythema, or ecchymosis. Range of motion is full. Neurovascular intact. X-rays ordered, obtained and reviewed From an outside facility, 3 views of the left shoulder reveals a nondisplaced greater tuberosity fracture Impression/Plan:Damian irwin and the situaton discussed. Treatment options discussed. Patient to remain in her sling. She is nonweightbearing left upper extremity. She may come out of the sling and work on elbow, forearm, wrist and digital range of motion exercises. She was represcribed oxycodone, #30. She will follow up in 2 weeks for examination and repeat x-rays, 4 views of the left shoulder. In 2 weeks. She will begin pendulum exercises. At 4 weeks, she will begin assisted active range of motion exercises. In 6 weeks. She will begin physical therapy to work on passive range of motion and strengthening Jarret Ferguson PA-C [address] [facility] [address] [facility], [place], [address], [facility] 03/15/2024 13:57:58 04/11/2024 text/html I am seeing the patient today under the supervision of dr Doherty who was available but who did not see the patient. DX:Left greater tuberosity fracture 03/14/2024 HPI:53-year-old female here for Reevaluation. Her pain is improved overall. She been working on scar massage of her humerus. No numbness, tingling. Past family, medical, social history and review of systems has been reviewed, updated and is located in the patient s chart. Examination: Left shoulder- A+O x3 non antalgic gaitImproved soft tissue swelling, And, ecchymosisShe is not tender over the deltoid muscle and the proximal humeral shaftNo TTP distal clavicle, ACJ, acromionShoulder range of motion not testedRadial, median and ulnar nerve motor and sensory function are intact Right shoulder reveals no soft tissue swelling, erythema, or ecchymosis. Range of motion is full. Neurovascular intact. X-rays ordered, obtained and reviewed From 4 views of the left shoulder reveals a Healing nondisplaced greater tuberosity fracture Impression/Plan:Damian irwin and the situaton discussed. she will begin assisted active range of motion exercises. She will follow up in 2 weeks for reexamination of her range of motion and final x-rays, 4 views of the left shoulder. At that time,She will begin physical therapy to work on passive range of motion and strengthening Jarret Ferguson PA-C [address] [place] [address] [address] [facility], [place], [address], [facility] 04/11/2024 14:49:31 12/20/2024 text/html I am seeing the patient today under the supervision of Dr. Alicea who was available but who did not see the patient. HPI:Patient is a 54-year-old female who presents to the office today with complaint of left hip pain. Has been experiencing left hip pain for many years. Pain comes and goes depending on specific activities that she is doing. Does have increased pain after golfing. Pain with increased ambulatory activities. Does not utilize any medications for pain relief. Has previously tried an intra-articular injection which gave her relief for about 3 to 4 months. Last injection was about 3 to 4 years ago. Does not experience any numbness or tingling of the left lower extremity. Pain primarily located within the anterior groin region. Past family, medical, social history and review of systems has been reviewed, updated and is located in the patient s chart. Examination: Well-appearing 54-year-old female in no acute distress. She is alert and oriented x 3. She ambulates with a symmetric gait. Left hip reveals no erythema, warmth, ecchymosis, swelling. No tenderness palpation of the greater trochanter. Limitations throughout range of motion specifically with internal and external rotation. Hip strength 5/5 against resistance in all directions. Positive TOM test. Positive Stinchfield test. Calf is soft and nontender. 2 views of the left hip obtained and independently reviewed in the office today reveals significant joint space narrowing of the superior aspect. Evidence of subchondral sclerosis as well as osteophyte formation. No fracture. Impression:Left hip osteoarthritis Plan:We discussed the role of conservative management including medications, physical therapy, injection. Patient previously did well with intra-articular injection but has not had one in 4 years. Would like to proceed with 1 today. Please see procedure note for injection. Ultimately patient knows that she needs a hip replacement but would like to hold off until later this year into the fall/winter before having 1 done. We will see her back in the office in about 3 months. All patient questions and concerns were answered today. Ricardo Block PA-C [address] [place] [address] [address], [place], [address], [facility] 12/20/2024 17:13:36 03/21/2025 text/html I am seeing the patient today under the supervision of Dr. Alicea who was available but who did not see the patient. HPI: The patient returns for follow-up of left hip pain. The history is outlined by previous notes. The patient has recurrent pain about the left hip. Past family, medical, social history and review of systems has been reviewed, updated and is located in the patient s chart. Examination: The patient is well appearing and in no apparent distress. Alert and oriented x3. Gait is symmetric. No significant swelling warmth or erythema about the left hip. Range of motion of the left hip is decreased in all planes. . Peripheral, vascular, lymphatic examination, skin, neurological, coordination, reflexes, sensation are within normal limits. Impression: Osteoarthritis of the left hip Plan: Reviewed diagnosis with the patient today in the office. We discussed the patient's options. We discussed the risks, options, benefits In regards to a total hip arthroplasty. We discussed the surgery itself and rehabilitation process. We discussed conservative management. Activity modification discussed. P.r.n. NSAIDs can use. We discussed the risks associated with NSAID use. I injected 40 mg of Kenalog and 2 cc of 1% lidocaine into the left hip joint using the ultrasound-guided technique under sterile conditions. The patient tolerated the injection well. She wants to discuss joint replacement surgery for this upcoming fall. Patient referred to Dr. Alicea for further discussion and surgical booking. All patient questions and concerns answered and addressed today. Ricardo Block PA-C [address] [facility] [address], [place], [address], [place] [facility] 03/21/2025 08:40:17 OBGyn Episode No OBEpisode recorded.
[2025-04-03 16:37] LABS: Free T4 (Free Thyroxine) 1.32 ng/dL (0.71-1.85); Thyroid Stimulating Hormone 0.12 uIU/mL (0.32-4.0)
== END 2025-04-03 13:34 | disposition home or self-care (01) ==
LOC: HO.WFDLDS 13:33
PROVIDERS: Visit Provider Student in an Organized Health Care Education/Training Program
DX: E06.3 Autoimmune thyroiditis (principal); E04.1 Nontoxic single thyroid nodule
CPT/HCPCS: 36415; 84439; 84443

== ENCOUNTER 2025-05-15 08:59 | Outpatient (REF) | payer BC, SELFPAY ==
[2025-05-15 12:04] LABS: Free T4 (Free Thyroxine) 1.18 ng/dL (0.71-1.85); Thyroid Stimulating Hormone 0.46 uIU/mL (0.32-4.0)
== END 2025-05-15 09:00 | disposition home or self-care (01) ==
LOC: HO.WFDLDS 08:59
PROVIDERS: Visit Provider Student in an Organized Health Care Education/Training Program
DX: E06.3 Autoimmune thyroiditis (principal)
CPT/HCPCS: 36415; 84439; 84443

== ENCOUNTER 2025-05-18 13:26 | Outpatient (AMB) | payer BC, SELFPAY ==
[2025-05-18 13:29] VITALS: BP 130/80; PULSE 92; O2SAT 99; BMI 26.9
--- NOTE | 2025-05-18 13:29 | MHC.OFFVIS ---
Vital Signs 05/18/25 13:29 Height 5 ft 3 in Weight 152 lb 1.903 oz BMI 26.9 BP 130/80 Blood Pressure Location Lt brachial Position Sitting Pulse 92 Pulse Source Pulse Oximeter Pulse Oximetry (%) 99 Oxygen Delivery Method Room Air Intake Visit Reasons: Hypothyroidism Intake Note: Patient present today for Hypothyroidism office visit. 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 and left sided thyroid nodules. HPI Diagnosed with hypothyroidism, diagnosed in her 40s. Labs from 08/15/2024: Showed elevated TSH of 7.79, free T4 of 1.11. 08/29/2024: PCP increased levothyroxine from 100 mcg daily to 112 mcg daily Takes levothyroxine 112 mcg daily at 7 30 AM, fasts till midday. Good adherence. Used to see Dr. Ricardo Bennett in [place] for thyroid nodule ( [facility]) , moved to [place] 6 months ago For left thyroid nodule< thinks diagnosed also in her 40s, had FNA biopsy 12 years back whc was benign, has been followed with repeat US , most recently 2-3 years ago, no recent thyroid Us done. Patient currently denies heat or cold intolerance, diarrhea or constipation, hair loss, palpitation, anxiety, weight changes, mood changes, low energy, changes in appearance of eyes or vision changes, tremors, increased diaphoresis or dry skin. ? Patient denies any difficulty swallowing, pain on swallowing or voice changes or difficulty breathing. Patient denies any history of childhood neck radiation. Denies having ever used lithium, amiodarone or biotin supplements. Patient denies any family history of thyroid cancer or thyroid disease. 09/26/2024: Ultrasound of the thyroid showed a mid to lower right pole nodule 1.1 cm, TR 3 category, a left subcentimeter interpolar nodule which is cystic, and a left lower pole 1.2 cm nodule which is TR 3 category. 11/14/2024: TSH 0.09 , free T4 1.5 Interval history 04/03/2025: TSH 0.12, free T4 1.32 04/05/2025 levothyroxine reduced to 100 mcg daily instead of 112 mcg Thursday to Thursday and half a pill on Sundays05/15/2025: TSH 0.46, free T4 1.18 No symptoms of hypo or hyperthyroidism. Physical exam General: sitting comfortably in no acute distress HEENT: normocephalic/atraumatic Neck: supple, symmetrical, no thyromegaly Cardiac: normal heart sounds Pulm: normal breath sounds B/L, no added breath sounds Abd: not distended, no tenderness Laboratory Tests 08/15/24 11:34 TSH 7.79 H Free T4 1.11 Laboratory Tests 08/15/24 11/14/24 11:34 08:12 TSH 7.79 H 0.09 L Free T4 1.11 1.52 Laboratory Tests 01/11/25 04/03/25 05/15/25 10:18 13:35 09:01 TSH 0.26 L 0.12 L 0.46 Free T4 1.32 1.32 1.18 EXAMINATION: US THYROID 09/26/24 HISTORY: E04.1 - Nontoxic single thyroid nodule TECHNIQUE: Real-time grayscale ultrasound imaging was performed and images were reviewed. COMPARISON: There are no prior studies for comparison. FINDINGS: SIZE: The right thyroid lobe measures 3.2 x 0.8 x 1.0 cm. The left thyroid lobe measures 3.4 x 0.9 x 1.4 cm. The isthmus measures 1 mm. FLOW: Flow to the gland is normal. ECHOGENICITY: The echotexture of the gland is heterogeneous. NODULES: Multiple nodules are noted as described below: Nodule #: 1 Location: Mid to lower pole right thyroid lobe measuring 1.1 x 0.7 x 0.7 cm Shape: Ovoid, wider than tall Margins: Well-circumscribed Echotexture: Isoechoic Morphology: Predominantly solid Calcifications: None TIRADS: TR3: Mildly suspicious. Nodule #: 2 Location: Left interpolar region measuring 9 x 9 x 8 mm Shape: Round Margins: Well-circumscribed Echotexture: Undetermined Morphology: Cystic and solid Calcifications: None TIRADS: TR2: Not suspicious Nodule #: 3 Location: Left lower pole measuring 1.1 x 1.2 x 0.8 cm Shape: Ovoid, wider than tall Margins: Well-circumscribed Echotexture: Undetermined Morphology: Cystic and solid Calcifications: Macrocalcifications present TIRADS: TR3: Mildly suspicious. US/US thyroid IMPRESSION: Nodules are seen in both thyroid lobes as described, which are mildly suspicious. According to ACR TI-RADS, follow-up is recommended. [facility] Social [facility] Patient Tobacco Use Status: Former Tobacco user Years Smoked: colleges years e-Cigarette/Vaping Use: Never Used Second Hand Smoke Exposure: No service: No Current occupational status: employed Current occupation: Teacher Current occupational exposures/hazards: No Cognitive needs: No Hearing needs: No Vision needs: No Physical Exam Vital Signs: Last Vital Signs Pulse 92 05/18/25 13:29 BP 130/80 05/18/25 13:29 Pulse Ox 99 05/18/25 13:29 Oxygen Delivery Method Room Air 05/18/25 13:29 BMI result Body Mass Index 26.9 Assessment & Plan Assessment & Plan (1) Hypothyroid: Code(s): E03.9 - Hypothyroidism, unspecified Category: Medical Qualifiers: 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 Qualified Code(s): E06.3 - Autoimmune thyroiditis Plan: 54-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 She has had a biopsy of the nodule about 12 years ago, which was benign per patient. I was able to obtain her records from her prior mental health technician but did not include her last ultrasound. No compressive symptoms. 09/26/2024: Ultrasound of the thyroid showed a mid to lower right pole nodule 1.1 cm, TR 3 category, a left subcentimeter interpolar nodule which is cystic, and a left lower pole 1.2 cm nodule which is TR 3 category. At this time none of the nodules meet criteria for FNA. We will continue to monitor these. Plan: -repeat thyroid ultrasound ordered for October 2025 prior to follow up in November 2025 Plan See above Orders: Orders Thyroid Stimulating Hormone 10/30/25 E04.1 - Nontoxic single thyroid nodule, E06.3 - Autoimmune thyroiditis US thyroid 10/30/25 E04.1 - Nontoxic single thyroid nodule, E06.3 - Autoimmune thyroiditis Free T4 (Free Thyroxine) 10/30/25 E04.1 - Nontoxic single thyroid nodule, E06.3 - Autoimmune thyroiditis Medications: Refilled levothyroxine (Synthroid) 100 mcg PO DAILY 90 tabs 4RF Patient Instructions: Continue levothyroxine 100 mcg daily Do ultrasound of the thyroid in Oct 2025, someone will call you to schedule this, please make sure this is done a few weeks prior to your next followup in November 2025 Do thyroid blood work a few days prior to follow up , orders are in at the lab Coding Level of Care Code Est Pt Level 3 (98061) Diagnoses 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
== END 2025-05-18 13:40 | disposition home or self-care (01) ==
LOC: HO.ENCR 13:27
PROVIDERS: PCP Internal Medicine; Visit Provider Student in an Organized Health Care Education/Training Program
DX: E06.3 Autoimmune thyroiditis (principal); E04.1 Nontoxic single thyroid nodule
CPT/HCPCS: 99213

== ENCOUNTER 2025-09-01 08:20 | Outpatient (REF) | payer BC, SELFPAY ==
[2025-09-01 11:09] LABS: MANUAL DIFF FLAG NO
[2025-09-01 11:17] LABS: Hematocrit 36.7 % (37.0-47.0); Hemoglobin 12.5 g/dl (12.0-16.0); Imm Gran Abs Auto 0.01 X10*3/uL (0.00-0.03); Imm Gran Pct Auto 0.2 % (0.0-0.4); Lymphocytes Absolute Auto 1.0 X10*3/uL (1.2-4.9); Mean Corpuscular HGB Conc 34.1 g/dl (31.0-35.0); Mean Corpuscular Hemoglobin 35.2 pg (27.0-33.0); Mean Corpuscular Volume 103.4 fL (80.0-98.0); NRBC Abs Auto 0.000 X10*3/uL (0.0-0.012); NRBC Pct Auto 0.0 /100WBC (0.0-0.2); Platelet Count 396 X10*3/uL (160-400); Red Blood Count 3.55 X10*6/uL (4.20-5.50); White Blood Count 4.5 X10*3/uL (4.8-10.8)
[2025-09-01 11:27] LABS: Alanine Aminotransferase 29 U/L (0-31); Albumin Level 4.4 g/dL (3.5-5.0); Alkaline Phosphatase 138 U/L (39-117); Anion Gap 12 (12-20); Aspartate Amino Transferase 38 U/L (5-31); Blood Urea Nitrogen 6 mg/dL (9-16); Calcium 9.3 mg/dL (8.4-10.2); Carbon Dioxide 28 mmol/L (22-29); Chloride 103 mmol/L (96-108); Cholesterol 222 mg/dL (<200); Estimated Glomerular Filt Rate > 60; HDL Cholesterol 69 mg/dL (>40); Potassium 3.9 mmol/L (3.3-5.1); Sodium 139 mmol/L (135-145); Total Protein 7.5 g/dL (6.5-8.0); Triglycerides 158 mg/dL (<150)
== END 2025-09-01 08:21 | disposition home or self-care (01) ==
LOC: HO.WFDLDS 08:20
PROVIDERS: PCP Internal Medicine; Visit Provider Internal Medicine
DX: Z00.00 Encounter for general adult medical examination without abnormal findings (principal); Z13.0 Encounter for screening for diseases of the blood and blood-forming organs and certain disorders involving the immune mechanism; Z13.220 Encounter for screening for lipoid disorders; E06.3 Autoimmune thyroiditis; R35.89 Other polyuria; F33.41 Major depressive disorder, recurrent, in partial remission; Z79.890 Hormone replacement therapy
CPT/HCPCS: 36415; 80053; 80061; 83036; 85025; 90471; 90656; 96127

== ENCOUNTER 2025-09-01 08:20 | Outpatient (AMB) | payer BC, SELFPAY ==
--- NOTE | 2025-09-01 08:34 | A.OFFPC_ITS ---
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 Lost her son a few years ago. Holidays are difficult Hypothyroid: On levothyroxine 100mcg daily. Following with Dr Steph THOMAS: Had left hip replacement 3 weeks ago. has had flare in sciatica since Mammo 09/2024 Colonoscopy due-referral placed Flu shot today ROS see HPI PHYSICAL EXAM: GENERAL: Alert and oriented x 3. NAD EYES: EOMI. Anicteric. HENT: Moist mucous membranes. No scleral icterus. No cervical lymphadenopathy. LUNGS: Clear to auscultation bilaterally. CARDIOVASCULAR: Regular rate and rhythm. No murmur. No JVD. ABDOMEN: Soft, non-tender +bs EXTREMITIES: No edema. Non-tender. SKIN: No rashes or lesions. Warm. NEUROLOGIC: No focal neurological deficits. CN II-XII grossly intact PSYCHIATRIC: Cooperative. Appropriate mood and affect [facility] Surgical History (Updated 09/01/25 @ 08:42 by Lauren Miller CMA) History of left hip replacement Social History (Updated 09/01/25 @ 08:42 by Lauren Miller CMA) Housing: Condominium Alcohol intake: current Patient Tobacco Use Status: Former Tobacco user Years Smoked: colleges years e-Cigarette/Vaping Use: Never Used Second Hand Smoke Exposure: No service: No Current occupational status: employed Current occupation: Teacher Current occupational exposures/hazards: No Cognitive needs: No Hearing needs: No Vision needs: No Questionnaire PHQ-9 Over the last 2 weeks, how often have you been bothered by any of the following problems? 1. Little interest or pleasure in doing things: several days 2. Feeling down, depressed, or hopeless: several days 3. Trouble falling or staying asleep, or sleeping too much: several days 4. Feeling tired or having little energy: several days 5. Poor appetite or overeating: not at all 6. Feeling bad about yourself - or that you are a failure or have let yourself or your family down: not at all 7. Trouble concentrating on things, such as reading the newspaper or watching television: not at all 8. Moving or speaking so slowly that other people could have noticed. Or the opposite - being so fidgety or restless that you have been moving around a lot more than usual: not at all 9. Thoughts that you would be better off or of hurting yourself in some way: not at all Total score: 4 Depression Screening Interpretation: Positive Depression Screening Follow-up: Existing condition Depression Screening Done: Yes 23539 - PHQ-9 Billing: Yes Source: Developed by Drs. Joce Michelle, Mally Mckeon, Rustam Caballero and colleagues, with an educational nayeli from [employer]. Thrive Questionnaire Date Thrive assessed: 08/08/24 I am a: Patient What is your living situation today?: I have a steady place to live Within the past 12 months, did the food you bought not last and you didn't have the money to get more?: Never true Within the past 12 months, did you worry whether your food would run out before you got money to buy more?: Never true Do you have trouble paying for medicines?: No Do you have trouble getting transportation to medical appointments?: No Do you have trouble paying your heating and electricity bill?: No Do you have trouble taking care of your child, family member or friend?: No Do you have trouble with day-to-day activities such as bathing, preparing meals, shopping, managing finances, etc.?: No Are you currently unemployed and looking for a job?: No Are you interested in more education?: No Please select the resources that you would like help with: None Currently or been in a relationship where the following occur: No concerns reported THRIVE Score: 0 AUDIT C Alcohol Use Questionnaire (AUDIT-C) 1. How often do you have a drink containing alcohol?: 2-3 times a week 2. How many drinks containing alcohol do you have on a typical day when you are drinking?: 3 or 4 3. How often do you have six or more drinks on one occasion?: Monthly Total Score: 6 ADONAY-7 AMB Questionnaire ADONAY-7 Date ADONAY - 7 assessed: 09/01/25 Feeling nervous, anxious, or on edge: 0 = Not at all Not being able to stop or control worryin = Not at all Worrying too much about different things: 0 = Not at all Trouble relaxin = Not at all Being so restless that it is hard to sit still: 0 = Not at all Becoming easily annoyed or irritable: 0 = Not at all Feeling afraid as if something awful might happen: 0 = Not at all Total ADONAY-7 score (0-4 normal; 5-9 mild; 10-14 moderate; 15-21 severe): 0 Source: Developed by Drs. Joce Michelle, Mally Mckeon, Rustam Caballero and colleagues, with an educational nayeli from [employer]. ADONAY-7 Assessment Billing ADONAY-7 Assessment Tool: ADONAY-7 Assessment 62643 Physical exam (Primary Care) Vital Signs: Last Vital Signs Temp 98.6 F 09/01/25 08:37 Pulse 95 09/01/25 08:37 Resp 14 09/01/25 08:37 BP 108/78 09/01/25 08:37 Pulse Ox 95 09/01/25 08:37 Oxygen Delivery Method Room Air 09/01/25 08:37 BMI result Body Mass Index 27.5 Tobacco/Smoking Status: Tobacco use Status Tobacco use date assessed 09/01/25 09/01/25 08:41 Patient Tobacco Use Status Former Tobacco user 09/01/25 08:42 e-Cigarette/Vaping Use Never Used 09/01/25 08:42 PHQ-9: PHQ-9 Score PHQ-9: Total score 4 09/01/25 09:05 Depression Screening Interpretation: Positive Depression Screening Follow-up: Existing condition Thrive Assessment: Date of Thrive Assessment Date Thrive assessed 08/08/24 09/01/25 08:41 Currently or been in a relationship where the following occur: No concerns reported Office Procedures Flu Questionnaire Does the patient have a severe egg allergy?: No Does the patient have severe life threatening allergies?: No Does the patient have a fever or illness today?: No Has the patient ever had Guillain-Norwood Syndrome?: No Has the patient ever had any past reaction to a flu shot?: No Immunizations Fluarix [id number] (PF) 45 mcg (15 mcg x 3)/0.5 mL IM syringe Performing Provider: Neena Archuleta MD Performing Location: [facility] Administered by: Lauren Miller CMA on 09/01/25 09:13 Dose Route Admin Location Dispensed Lot Number Expiration Date [facility] Debate Director 0.5 mL IM Left Deltoid 0.5 mL [id number] 09/01/25 [id number] [employer] VIS Given Date VIS Provided VIS Publication Date 09/01/25 Single Vaccine 24 Eligibility Eligibility Date Funding Source Not [facility] Eligible 09/01/25 Private Coding Level of Care Code Est Pt Level 4 (44268) Diagnoses Physical exam Z00.00 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 Recurrent major depressive disorder, in partial remission F33.41 Active/Remission status: in partial remission Depression Type: major depressive disorder Major depression recurrence: recurrent Additional Codes ADONAY-7 Assessment Billing - ADONAY-7 Assessment Tool: ADONAY-7 Assessment 29892 ([id number]) PHQ-9 - 67314 - PHQ-9 Billing: Yes ([id number]) Assessment & Plan Assessment & Plan (1) Physical exam: Code(s): Z00.00 - Encounter for general adult medical examination without abnormal findings Category: Medical (2) Hypothyroid: Code(s): E03.9 - Hypothyroidism, unspecified Category: Medical Qualifiers: 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 Refer GI for colonoscopy Labs ordered Hypothyroid -stable Orders: Orders Hemoglobin A1c Today E06.3 - Autoimmune thyroiditis, R35.89 - Other polyuria, Z13.0 - Encounter for screening for diseases of the blood and blood-forming organs and certain disorders involving the immune mechanism, Z13.220 - Encounter for screening for lipoid disorders Influenza [id number] Immunization Today Z23 - Encounter for immunization Complete Blood Count Auto Diff Today E06.3 - Autoimmune thyroiditis, R35.89 - Other polyuria, Z13.0 - Encounter for screening for diseases of the blood and blood-forming organs and certain disorders involving the immune mechanism, Z13.220 - Encounter for screening for lipoid disorders Comprehensive Met. Panel Today E06.3 - Autoimmune thyroiditis, R35.89 - Other polyuria, Z13.0 - Encounter for screening for diseases of the blood and blood- forming organs and certain disorders involving the immune mechanism, Z13.220 - Encounter for screening for lipoid disorders Lipid Panel Today E06.3 - Autoimmune thyroiditis, R35.89 - Other polyuria, Z13.0 - Encounter for screening for diseases of the blood and blood-forming organs and certain disorders involving the immune mechanism, Z13.220 - Encounter for screening for lipoid disorders MM tomosynthesis screening BI Today Z12.31 - Encounter for screening mammogram for malignant neoplasm of breast Referrals Gastroenterology Referral Z12.11 - Encounter for screening for malignant neoplasm of colon Medications: Refilled escitalopram oxalate 20 mg PO DAILY 90 tabs 3RF
[2025-09-01 08:37] VITALS: BP 108/78; PULSE 95; RESP 14; TEMP 37; O2SAT 95; BMI 27.5
== END 2025-09-01 09:06 | disposition home or self-care (01) ==
LOC: HO.HMCFM 08:21
PROVIDERS: PCP Internal Medicine; Visit Provider Internal Medicine
DX: Z00.00 Encounter for general adult medical examination without abnormal findings (principal); E06.3 Autoimmune thyroiditis; F33.41 Major depressive disorder, recurrent, in partial remission; Z23 Encounter for immunization